=== PATIENT | female | born 1990 | race Asian ===

== ENCOUNTER → 2019-02-16 | Outpatient (CLI) | payer OTHER | END | disposition home or self-care (01) | LOC: LAB 08:43 | PROVIDERS: ATTEND Student in an Organized Health Care Education/Training Program | DX: Z01.419 Encounter for gynecological examination (general) (routine) without abnormal findings (principal); N97.0 Female infertility associated with anovulation | CPT/HCPCS: 36415; 82397; 82670; 83001; 84146 ==

== ENCOUNTER 2019-04-01 22:26 | Emergency (ER) | payer OTHER ==
[~2019-04-01] VITALS: Ht 167.6 cm; Wt 54.8 kg
[2019-04-01 22:29] VITALS: BP 124/89
== END 2019-04-01 23:22 | disposition home or self-care (01) ==
LOC: ED 23:05
DX: B35.2 Tinea manuum (principal)
CPT/HCPCS: 99283